=== PATIENT | male | born 1955 | race Caucasian/White ===

== ENCOUNTER 2018-07-17 06:10 | Day surgery (SDC) | payer BC ==
[2018-07-17] MEDS: Lactated Ringers 1,000 ML IV SCH (06:58)
[2018-07-17] MEDS ORDERED: Sodium Chloride 0.9% 10 ML Syringe FLUSH PRN (07:00)
[2018-07-17] MEDS ORDERED: Propofol 200 MG/20 ML SDV ONE ×2 (07:51→08:01)
[2018-07-17] MEDS ORDERED: fentaNYL 100 MCG/2 ML SDV ONE (07:51)
--- NOTE | 2018-07-17 08:50 | OR ---
PREOPERATIVE DIAGNOSIS: Positive FIT test. POSTOPERATIVE DIAGNOSIS: Large tubulovillous polyp of the cecum near appendiceal orifice. PROCEDURE PROPOSED: Total flexible colonoscopy. PROCEDURE DONE: Total flexible colonoscopy with multiple biopsies of cecal mass. INDICATION: This is a 62-year-old gentleman referred by Srinivas Saucedo for colonoscopic exam due to a recent positive FIT test on annual exam. He denies any symptomatology, and he has a negative family history for colon cancer or polyps. TECHNIQUE: The patient was brought to the endoscopy suite and placed in the left lateral decubitus position. He was sedated per [employer] with propofol. The flexible video colonoscope was then passed transanally and under visualization advanced to the cecum. In the cecal area, he was found to have a large, friable, tubulovillous-appearing type polyp with possibility of malignancy right at the appendiceal orifice. I felt it was too large and risky to try to remove this endoscopically. Therefore, multiple biopsies were taken of the mass totaling 5 biopsies. The remainder of the exam revealed a normal ileocecal valve region. The ascending, transverse, descending, sigmoid, and rectal colon was otherwise normal. There was no signs of any other polyps or diverticulosis or any other abnormalities, and the scope was then withdrawn. The patient tolerated the procedure well. FINAL IMPRESSION: Cecal mass at appendiceal orifice, biopsies pending. PLAN: I felt that this mass is too large to remove endoscopically, and I felt there was a moderate risk of malignancy and would need more formal surgery. I will be in touch with the patient with pathology report for making further recommendations. SCM: 07/17/2018 08:20:54 MODL: 07/17/2018 08:46:21 /[id number]
== END 2018-07-17 10:05 | disposition home or self-care (01) ==
LOC: VM.SDS 06:10
PROVIDERS: ATTEND Surgery
DX: C18.0 Malignant neoplasm of cecum (principal); R19.5 Other fecal abnormalities; E78.00 Pure hypercholesterolemia, unspecified; I10 Essential (primary) hypertension; R73.01 Impaired fasting glucose
CPT/HCPCS: J2704; J3010; J7120

== ENCOUNTER 2018-08-22 21:44 | Observation (INO) | payer BC ==
[2018-08-22] MEDS ORDERED: Sodium Chloride 0.9% 10 ML Syringe FLUSH PRN (22:01)
[2018-08-22] MEDS ORDERED: Metoclopramide 10 MG/2 ML SDV IVPUSH ONE (22:01)
[2018-08-22] MEDS ORDERED: Ondansetron 4 MG/2 ML SDV IVPUSH ONE (22:02)
[2018-08-22] MEDS ORDERED: Sodium Chloride 0.9% 1,000 ML IV SCH (22:15)
--- NOTE | 2018-08-22 22:24 | EDM.PDOC ---
ED HPI GENERAL MEDICAL PROBLEM - General Chief Complaint: Abdominal Pain Stated Complaint: Abdominal Discomfort Time Seen by Provider: 08/22/18 22:00 Source of Information: Reports: Patient, Family, Other ([place] chart reviewed) History Limitations: Reports: No Limitations - History of Present Illness INITIAL COMMENTS - FREE TEXT/NARRATIVE: Patient comes in tonight with complaints of nausea, vomiting, stomach bloating. He recently had colon resection and appendectomy in [place] 08/18/18. Discharged . Has been having complaints of the same since discharge. States after he had a sizeable emesis, the pressure was better. He does state he is having "pressure" to the mid stomach area. Denies pain. Wound vac attached to the area of the umbilicus. States not much drainage has come out today. He is afebrile, normal blood pressure, tachycardic. Ancef and zosyn given before and during surgery. Surgery performed by Dr. Pruett. Denies chest pain, SOB, headache. Did start having bowel movements today. Stated he had 2- 3. No blood in stools or emesis. Onset: Gradual Duration: Getting Worse, Intermittent Location: Reports: Abdomen Quality: Reports: Pressure Severity: Moderate Improves with: Reports: Heat Therapy, Movement Worsens with: Reports: Eating Associated Symptoms: Reports: Nausea/Vomiting - Related Data Allergies Allergy/AdvReac Type Severity Reaction Status Date / Time No Known Allergies Allergy Verified 08/22/18 22:35 Home Meds: Home Meds Multivitamin-Min/Iron/FA/Vit K [Multi-Day Plus Minerals Tablet] 1 each PO DAILY 01/10/17 [History] Docusate Sodium [Colace] 200 mg PO BID 08/22/18 [History] oxyCODONE 5 mg PO Q4HR PRN 08/22/18 [History] Past Medical History - Past Health History Medical/Surgical History: Denies Medical/Surgical History HEENT History: Reports: None Cardiovascular History: Reports: High Cholesterol Respiratory History: Reports: None Gastrointestinal History: Reports: None, Other (See Below) Other Gastrointestinal History: positive FIT test Genitourinary History: Reports: None Musculoskeletal History: Reports: None Neurological History: Reports: None Psychiatric History: Reports: None Endocrine/Metabolic History: Reports: Other (See Below) Other Endocrine/Metabolic History: impaired fasting glucose Hematologic History: Reports: None Immunologic History: Reports: None Oncologic (Cancer) History: Reports: None Dermatologic History: Reports: None - Past Surgical History Female Surgical History: ED ROS GENERAL - Review of Systems Review Of Systems: See Below Constitutional: Reports: No Symptoms HEENT: Reports: No Symptoms Respiratory: Reports: No Symptoms Cardiovascular: Reports: No Symptoms Endocrine: Reports: No Symptoms GI/Abdominal: Reports: Abdominal Pain, Nausea, Vomiting : Reports: No Symptoms Musculoskeletal: Reports: No Symptoms Skin: Reports: No Symptoms Neurological: Reports: Dizziness Psychiatric: Reports: No Symptoms Hematologic/Lymphatic: Reports: No Symptoms Immunologic: Reports: No Symptoms ED EXAM, GI/ABD - Physical Exam Exam: See Below Text/Narrative:: Please use ED note for admission history and physical. Exam Limited By: No Limitations General Appearance: Alert, WD/WN, Mild Distress Eyes: Bilateral: Normal Appearance, EOMI Ears: Normal TMs Nose: Normal Inspection, Normal Mucosa, No Blood Throat/Mouth: Normal Inspection, Normal Lips, Normal Teeth, Normal Gums, Normal Oropharynx, Normal Voice, No Airway Compromise Head: Atraumatic, Normocephalic Neck: Normal Inspection, Supple, Non-Tender, Full Range of Motion Respiratory/Chest: No Respiratory Distress, Lungs Clear, Normal Breath Sounds, No Accessory Muscle Use, Chest Non-Tender Cardiovascular: Normal Peripheral Pulses, Regular Rate, Rhythm, No Edema, No Gallop, No JVD, No Murmur, No Rub GI/Abdominal Exam: Soft, Distended, Tender, Abnormal Bowel Sounds (hypoactive x 4 quad) Back Exam: Normal Inspection, Full Range of Motion, NT Extremities: Normal Inspection, Normal Range of Motion, Non-Tender, Normal Capillary Refill, No Pedal Edema Neurological: Alert, Oriented, CN II-XII Intact, Normal Cognition, Normal Gait, Normal Reflexes, No Motor/Sensory Deficits Psychiatric: Normal Affect, Normal Mood Skin Exam: Warm, Dry, Intact, Normal Color, No Rash Lymphatic: No Adenopathy Course - Orders/Labs/Meds Orders: Active Orders 24 hr Category Date Time Status Abdomen Pelvis w Cont [CT] Stat Exams 08/22/18 22:01 Ordered AMYLASE [CHEM] Stat Lab 08/22/18 22:01 Ordered C-REACTIVE PROTEIN [CHEM] Stat Lab 08/22/18 22:01 Ordered CBC WITH AUTO DIFF [HEME] Stat Lab 08/22/18 22:01 Ordered COMPREHENSIVE METABOLIC PN,CMP [CHEM] Stat Lab 08/22/18 22:01 Ordered LIPASE [CHEM] Stat Lab 08/22/18 22:01 Ordered Sodium Chloride 0.9% [Normal Saline] 1,000 ml Med 08/22/18 22:15 Ordered IV ASDIRECTED Sodium Chloride 0.9% [Saline Flush] Med 08/22/18 22:01 Ordered 10 ml FLUSH ASDIRECTED PRN Saline Lock Insert [OM.PC] Routine Oth 08/22/18 22:01 Ordered Medication Orders Sodium Chloride (Normal Saline) 1,000 mls @ 999 mls/hr IV ASDIRECTED OSMAR Sodium Chloride (Saline Flush) 10 ml FLUSH ASDIRECTED PRN PRN Reason: Keep Vein Open Meds: Medications Generic Name Dose Route Start Last Admin Trade Name Freq PRN Reason Stop Dose Admin Sodium Chloride 1,000 mls @ 999 mls/hr 08/22/18 22:15 Normal Saline IV ASDIRECTED OSMAR Sodium Chloride 10 ml 08/22/18 22:01 Saline Flush FLUSH ASDIRECTED PRN Keep Vein Open Discontinued Medications Generic Name Dose Route Start Last Admin Trade Name Freq PRN Reason Stop Dose Admin Metoclopramide HCl 5 mg 08/22/18 22:01 Reglan IVPUSH 08/22/18 22:02 ONETIME ONE Ondansetron HCl 4 mg 08/22/18 22:02 Zofran IVPUSH 08/22/18 22:03 ONETIME ONE Departure - Departure Time of Disposition: 00:42 Disposition: Refer to Observation Condition: Good Clinical Impression: Small bowel obstruction - Discharge Information *PRESCRIPTION DRUG MONITORING PROGRAM REVIEWED*: No *COPY OF PRESCRIPTION DRUG MONITORING REPORT IN PATIENT GLENN: No Referrals: Srinivas Saucedo PA-C [Primary Care Provider] - ED Communication - ED Communication Date/Time Date: 08/22/18 Time Called: 23:30 - Discussed Case With (1) Discussed Case With (1): Other (Dr. Urbina, surgeon from [facility] consulted. Images reviewed. Does not appear to be bowel perforation to him. Recommends admission, NG tube, bowel rest) - Discussed Case With (2) Discussed Case With (2): Other ([place] donor floor technician Dr. Ross notified and felt he should be observation with NMR covering. Patient admitted.) - Problem List & Annotations (1) Small bowel obstruction SNOMED Code(s): 765153563 Code(s): K56.609 - UNSP INTESTNL OBST, UNSP TO PARTIAL VERSUS COMPLETE OBST Status: Acute Priority: Medium Current Visit: Yes - Problem List Review Problem List Initiated/Reviewed/Updated: Yes - My Orders Last 24 Hours: My Active Orders 08/22/18 22:01 Abdomen Pelvis w Cont [CT] Stat AMYLASE [CHEM] Stat C-REACTIVE PROTEIN [CHEM] Stat CBC WITH AUTO DIFF [HEME] Stat COMPREHENSIVE METABOLIC PN,CMP [CHEM] Stat LIPASE [CHEM] Stat Sodium Chloride 0.9% [Saline Flush] 10 ml FLUSH ASDIRECTED PRN Saline Lock Insert [OM.PC] Routine 08/22/18 22:15 Sodium Chloride 0.9% [Normal Saline] 1,000 ml IV ASDIRECTED - Assessment/Plan Last 24 Hours: My Active Orders 08/22/18 22:01 Abdomen Pelvis w Cont [CT] Stat AMYLASE [CHEM] Stat C-REACTIVE PROTEIN [CHEM] Stat CBC WITH AUTO DIFF [HEME] Stat COMPREHENSIVE METABOLIC PN,CMP [CHEM] Stat LIPASE [CHEM] Stat Sodium Chloride 0.9% [Saline Flush] 10 ml FLUSH ASDIRECTED PRN Saline Lock Insert [OM.PC] Routine 08/22/18 22:15 Sodium Chloride 0.9% [Normal Saline] 1,000 ml IV ASDIRECTED Assessment:: small bowel obstruction Plan: Plan Admit to observation with SBO. NG to be inserted, bowel rest, IV medications for nausea, pain, encourage ambulation. Gentle hydration. Likely slowly add food Friday. Will see how decompression progresses.
[2018-08-22] MEDS ORDERED: Iopamidol 612 MG/ML 100 ML Bottle IVPUSH ONE (22:34)
[2018-08-22 22:59] LABS: ANION GAP 16.7 mmol/L (10-20); CHLORIDE,CL 100 mmol/L (98-107); SODIUM,NA 143 mmol/L (136-145)
[2018-08-22] MEDS ORDERED: HYDROmorphone 1 MG/ML Syringe IVPUSH ONE (23:31)
[2018-08-22] MEDS: Lactated Ringers 1,000 ML IV SCH (23:52)
[2018-08-23] MEDS ORDERED: Ondansetron 4 MG/2 ML SDV IVPUSH ONE (00:09)
[2018-08-23] MEDS ORDERED: Morphine 2 MG/ML Syringe IVPUSH PRN (00:26)
[2018-08-23] MEDS ORDERED: Ondansetron 4 MG/2 ML SDV IV PRN (00:26)
[2018-08-23] MEDS ORDERED: Scopolamine 1.5 MG Transdermal Patch TRDERM SCH (02:00)
[2018-08-23] MEDS: Lactated Ringers 1,000 ML IV SCH ×2 (09:20→17:03)
--- NOTE | 2018-08-23 10:42 | CT ---
[id number] CT/CT Abdomen Pelvis W IV EXAM: ABDOMEN AND PELVIS CT WITH CONTRAST INDICATION: Abdominal pain after resection. COMPARISON: August 06, 2018. DISCUSSION: Interval right colonic resection with a right MID abdomen anastomosis. There is infiltrating edema in the right retroperitoneum and there is a small amount of ascites throughout the abdomen and pelvis. A moderate amount of pneumoperitoneum could be postsurgical or related to anastomotic leak/perforation correlation with surgical timing and symptoms is suggested. The small bowel is dilated up to about 3.7 cm and is fluid-filled with relative decompression of the distal small bowel suspicious for obstruction. Ileus is considered less likely given the relative decompression of the distal small bowel although the transition is somewhat gradual. There is mild mesenteric edema. Gas within the urinary bladder likely relates to recent instrumentation, but could be seen in the context of a gas-forming urinary tract infection. Mild to moderate prostatomegaly. Mild gallbladder distention. Prior right inguinal hernia repair. The liver, pancreas, spleen, adrenal glands and kidneys are normal in appearance. The osseous structures are unremarkable. IMPRESSION: 1. Changes of recent cecal resection. Small free fluid and moderate pneumoperitoneum could be postoperative, but follow-up or clinical correlation is needed to help further exclude evidence of anastomotic leak or other bowel perforation. 2. Fluid-filled moderately dilated small bowel loops with transition point in the upper right abdomen suggesting at least partial bowel obstruction. Patrick Flower MD 08/23/18 1042 Thank you for allowing us to participate in the care of your patient.
[2018-08-23 10:43] LABS: CHLORIDE,CL 105 mmol/L (98-107); SODIUM,NA 145 mmol/L (136-145)
[2018-08-23 10:47] LABS: ANION GAP 11.7 mmol/L (10-20)
[2018-08-23] MEDS: Metoclopramide 10 MG/2 ML SDV IVPUSH SCH ×4 (10:55→21:30)
[2018-08-23] MEDS: Docusate Sodium 100 MG Cap PO SCH ×2 (14:17→19:53)
--- NOTE | 2018-08-24 00:27 | PCM.PN ---
- General Info Date of Service: 08/24/18 Admission Dx/Problem (Free Text): Pt. states that his pain is controlled. NG tube was initially clamped and eventually pulled. He has been tolerating clear liquids. He denies any abdominal pain at rest. He states that he has had several bowel movements. He states that he has been up ambulating on the floor. He is continuing to get maintenance IV fluids. He was started on IV reglan to help with peristalsis. he has not required any IV pain medication. Functional Status: Reports: Pain Controlled - Review of Systems General: Reports: No Symptoms HEENT: Reports: No Symptoms Pulmonary: Reports: No Symptoms Cardiovascular: Reports: No Symptoms Gastrointestinal: Reports: Abdominal Pain, Flatus Genitourinary: Reports: No Symptoms Musculoskeletal: Reports: No Symptoms Skin: Reports: No Symptoms Neurological: Reports: No Symptoms Psychiatric: Reports: No Symptoms - Patient Data Vitals - Most Recent: Last Vital Signs Temp 37.4 C 08/23/18 22:00 Pulse 80 08/23/18 22:00 Resp 16 08/23/18 22:00 BP 151/80 H 08/23/18 22:00 Pulse Ox 96 08/23/18 22:00 Weight - Most Recent: 82.1 kg I&O - Last 24 Hours: Intake & Output 08/23/18 08/23/18 08/24/18 14:59 22:59 06:59 Intake Total 933 Balance 933 Lab Results Last 24 Hours: Laboratory Results - last 24 hr 08/22/18 08/23/18 08/23/18 Range/Units 23:15 10:05 10:05 WBC 9.7 (4.0-10.0) x10^3/uL RBC 4.10 L (4.5-6.0) x10^6/uL Hgb 13.1 L D (14.0-18.0) g/dL Hct 38.6 L (40.0-52.0) % MCV 94.1 H (78.0-93.0) fL MCH 32.0 (26.0-32.0) pg MCHC 33.9 (32.0-36.0) g/dL RDW Coeff of [place] 13.0 (10.0-15.0) % Plt Count 309 D (130-400) x10^3/uL Neut % (Auto) 77.5 (50.0-80.0) % Lymph % (Auto) 13.5 L (25.0-50.0) % [place] % (Auto) 7.5 (2.0-11.0) % Eos % (Auto) 1.3 (0.0-4.0) % Baso % (Auto) 0.2 (0.2-1.2) % Sodium 145 (136-145) mmol/L Potassium 3.7 (3.5-5.1) mmol/L Chloride 105 (98-107) mmol/L Carbon Dioxide 32 (21-32) mmol/L Anion Gap 11.7 (10-20) mmol/L BUN 14 (7-18) mg/dL Creatinine 0.9 (0.70-1.30) mg/dL Est Cr Clr Drug Dosing 98.64 mL/min Estimated GFR (MDRD) > 60 Glucose 107 H (74-106) mg/dL Calcium 8.9 (8.5-10.1) mg/dL Corrected Calcium 9.78 (8.5-10.1) mg/dL Total Bilirubin 0.6 (0.2-1.0) mg/dL AST 59 H (15-37) U/L ALT 68 H (16-63) U/L Alkaline Phosphatase 95 (46-116) U/L Total Protein 6.7 (6.4-8.2) g/dL Albumin 2.9 L (3.4-5.0) g/dL Globulin 3.8 Albumin/Globulin Ratio 0.76 Urine Color Dark yellow (YELLOW) POC Urine Appearance Clear (CLEAR) POC Urine pH 6.0 (5.0-8.0) Ur Specific [place] <1.005 L (1.005-1.030) POC Urine Protein Negative (NEGATIVE) POC Ur Glucose (UA) Negative (NEGATIVE) POC Urine Ketones 40 H (NEGATIVE) POC Ur Occult Blood Negative (NEGATIVE) POC Urine Nitrite Negative (NEGATIVE) POC Urine Bilirubin Negative (NEGATIVE) POC Urine Urobilinogen 0.2 (0.2) POC U Leukocyte Esteras Negative (NEGATIVE) Med Orders - Current: Current Medications Docusate Sodium (Colace) 200 mg PO BID [facility] Last Admin: 08/23/18 19:53 Dose: 200 mg Sodium Chloride (Normal Saline) 1,000 mls @ 999 mls/hr IV ASDIRECTED [facility] Last Admin: 08/22/18 22:12 Dose: 999 mls/hr Lactated Ringer's (Ringers, Lactated) 1,000 mls @ 125 mls/hr IV ASDIRECTED [facility] Last Admin: 08/23/18 17:03 Dose: 125 mls/hr Metoclopramide HCl (Reglan) 5 mg IVPUSH Q4H [facility] Last Admin: 08/23/18 17:01 Dose: 5 mg Morphine Sulfate (Morphine) 2 mg IVPUSH Q2H PRN PRN Reason: Pain (severe 7-10) Ondansetron HCl (Zofran) 4 mg IV Q6H PRN PRN Reason: Nausea/Vomiting Scopolamine (Transderm-Scop) 1.5 mg TRDERM Q72H [facility] Last Admin: 08/23/18 02:06 Dose: 1.5 mg Sodium Chloride (Saline Flush) 10 ml FLUSH ASDIRECTED PRN PRN Reason: Keep Vein Open Discontinued Medications Hydromorphone HCl (Dilaudid) 1 mg IVPUSH ONETIME ONE Stop: 08/22/18 23:32 Last Admin: 08/23/18 00:00 Dose: 1 mg Iopamidol (Isovue-300 (61%)) 100 ml IVPUSH ONETIME ONE Stop: 08/22/18 22:35 Last Admin: 08/22/18 22:54 Dose: 100 ml Metoclopramide HCl (Reglan) 5 mg IVPUSH ONETIME ONE Stop: 08/22/18 22:02 Last Admin: 08/22/18 22:20 Dose: 5 mg Ondansetron HCl (Zofran) 4 mg IVPUSH ONETIME ONE Stop: 08/22/18 22:03 Last Admin: 08/22/18 22:20 Dose: 4 mg Ondansetron HCl (Zofran) 4 mg IVPUSH ONETIME ONE Stop: 08/23/18 00:10 Last Admin: 08/23/18 00:11 Dose: 4 mg - Exam General: Alert, Oriented Lungs: Clear to Auscultation, Normal Respiratory Effort Cardiovascular: Regular Rate, Regular Rhythm GI/Abdominal Exam: Normal Bowel Sounds, Soft, Non-Tender, No Organomegaly, No Distention, No Mass, Other (bowel sounds are normoactive.) (Male) Exam: No Hernia Back Exam: Normal Inspection, Full Range of Motion Extremities: Normal Inspection, Normal Range of Motion, Non-Tender, No Pedal Edema, Normal Capillary Refill - Problem List & Annotations (1) Small bowel obstruction SNOMED Code(s): 280517768 Code(s): K56.609 - UNSP INTESTNL OBST, UNSP TO PARTIAL VERSUS COMPLETE OBST Status: Acute Priority: Medium Current Visit: Yes - Problem List Review Problem List Initiated/Reviewed/Updated: Yes - My Orders Last 24 Hours: My Active Orders 08/23/18 09:29 NG [Gastrointestinal Tube Mgmt] [RC] ASDIRECTED 08/23/18 09:30 Metoclopramide [Reglan] 5 mg IVPUSH Q4H 08/23/18 Dinner Full Liquid Diet [DIET] 08/23/18 Lunch Clear Liquid Diet [DIET] 08/24/18 Breakfast Regular Diet [DIET] - Plan Plan:: Will advance diet throughout the day. Encouraged to ambulate. He will continue to receive IV reglan throughout the day today. Will wait to advance his diet to regular tomorrow if he is tolerating full liquid today.
[2018-08-24] MEDS: Lactated Ringers 1,000 ML IV SCH (00:38)
[2018-08-24] MEDS: Metoclopramide 10 MG/2 ML SDV IVPUSH SCH ×3 (00:39→09:52)
[2018-08-24] MEDS: Docusate Sodium 100 MG Cap PO SCH (07:47)
== END 2018-08-24 09:58 | disposition home or self-care (01) ==
LOC: VM.ED 21:44 → VM.MS 08-23 00:14
PROVIDERS: ADMIT Nurse Practitioner Family; ATTEND Nurse Practitioner Family
DX: K56.609 Unspecified intestinal obstruction, unspecified as to partial versus complete obstruction (principal); E78.00 Pure hypercholesterolemia, unspecified; Z90.49 Acquired absence of other specified parts of digestive tract; Z79.899 Other long term (current) drug therapy
CPT/HCPCS: 36415; 74177; 80053; 81002; 82150; 83690; 85025; 86140; 96361; 96374; 96375; 96376; 99285-25; A9270-GY; G0378; J1170; J2405; J2765; J7030; J7120; Q9967

== ENCOUNTER 2024-11-11 10:32 | Day surgery (SDC) | payer MEDICARE, OTHER ==
[~2024-11-11 10:32] MED LIST: Propofol 200 MG/20 ML SDV ONE; fentaNYL 100 MCG/2 ML SDV ONE
[2024-11-11] MEDS: Lactated Ringers 1,000 ML IV SCH (10:50)
[2024-11-11] MEDS ORDERED: Propofol 200 MG/20 ML SDV ONE (13:06)
== END 2024-11-11 14:40 | disposition home or self-care (01) ==
LOC: VM.SDS 10:32
PROVIDERS: ATTEND Family Medicine
DX: Z12.11 Encounter for screening for malignant neoplasm of colon (principal); D12.3 Benign neoplasm of transverse colon; D12.6 Benign neoplasm of colon, unspecified; I10 Essential (primary) hypertension; E78.00 Pure hypercholesterolemia, unspecified; Z98.0 Intestinal bypass and anastomosis status; Z90.49 Acquired absence of other specified parts of digestive tract; Z85.038 Personal history of other malignant neoplasm of large intestine; Z79.899 Other long term (current) drug therapy
CPT/HCPCS: 00811; 88305; J2704; J3010; J7120